=== PATIENT | female | born 1985 ===

== ENCOUNTER 2025-04-21 08:04 | Outpatient (CLI) | payer OTHER | END 2025-04-21 08:05 | disposition home or self-care (01) | LOC: PRENATAL 08:04 | PROVIDERS: ATTEND Obstetrics & Gynecology Maternal & Fetal Medicine | DX: O44.00 Complete placenta previa NOS or without hemorrhage, unspecified trimester (principal); O10.019 Pre-existing essential hypertension complicating pregnancy, unspecified trimester; O09.519 Supervision of elderly primigravida, unspecified trimester; O43.90 Unspecified placental disorder, unspecified trimester; Z3A.19 19 weeks gestation of pregnancy ==